=== PATIENT | male | born 1955 | race Caucasian/White ===

== ENCOUNTER 2019-06-06 23:24 | Inpatient (IN) | payer BC ==
[~2019-06-06] VITALS: Ht 188 cm; Wt 139.3 kg
[2019-06-06 23:25] VITALS: BP 147/81
--- NOTE | 2019-06-06 23:44 | NUR ---
PT PLACED ON CCM.PT GOWNED.PT PROVIDED EMESIS BAG AND TOWELS.SUCTION PROVIDED AT BEDSIDE.
--- NOTE | 2019-06-06 23:47 | NUR ---
O2 SAT DROPPED 89% RA.PT PLACED ON 2L O2 VIA NC.
[2019-06-07 00:46] LABS: BASO # 0.1 10*3/uL (0.0-0.1); BASO % 0.5 % (0.0-1.0); EOS # 0.1 10*3/uL (0.0-0.4); EOS % 0.7 % (1.0-4.0); HEMATOCRIT 45.2 % (42.0-52.0); HEMOGLOBIN 15.6 g/dl (14.0-18.0); LYMPH % 19.6 % (27.0-41.0); MEAN CELL VOLUME 85.9 fl (80.0-94.0); MEAN CORPUSCULAR HGB 29.7 pg (27.0-31.0); MEAN CORPUSCULAR HGB CONC 34.5 g/dl (33.0-37.0); MEAN PLATELET VOLUME 11.5 fl (9.6-12.3); MONO # 0.5 10*3/uL (0.1-1.0); MONO % 5.4 % (3.0-9.0); NEUT # 7.3 10*3/uL (2.3-7.9); NEUT % 73.2 % (47.0-73.0); PLATELET COUNT AUTOMATED 187 10*3/uL (130-400); RED BLOOD COUNT 5.26 10*6/uL (4.50-5.90); RED CELL DISTRI WIDTH 12.5 % (0-14.5)
[2019-06-07 00:57] LABS: ACT PARTIAL THROMBO TIME 23.1 SECONDS (20.0-32.1)
[2019-06-07 01:02] LABS: ALBUMIN 3.8 gm/dl (3.1-4.5); ALKALINE PHOSPHATASE 74 U/L (45-117); BUN 11 mg/dl (7-24); CHLORIDE 98 mmol/L (98-107); CREATININE 1.18 mg/dL (0.70-1.30); LIPASE 137 U/L (73-393); POTASSIUM 3.5 mmol/L (3.5-5.1); SGOT/AST 64 IU/L (3-35); SGPT/ALT 114 U/L (12-78); SODIUM 134 mmol/L (136-145); TOTAL PROTEIN 7.1 gm/dL (6.4-8.2)
[2019-06-07 01:03] LABS: ACETAMINOPHEN (TYLENOL) < 5.0 ug/ml (10-30); TROPONIN I < 0.015 ng/ml (<0.045)
--- NOTE | 2019-06-07 01:03 | NUR ---
LAB CALLED WITH CRITICAL LACTIC LEVEL OF 4.6. NOTIFIED.
--- NOTE | 2019-06-07 01:05 | NUR ---
PT RESTING RIGHT LATERAL POSITION IN BED WITH EYES CLOSED.
--- NOTE | 2019-06-07 01:19 | NUR ---
MAGNETIC OBSERVER CONTACTED FOR MEDICATION OF FOLIVITE.
[2019-06-07 03:00] VITALS: BP 127/72
--- NOTE | 2019-06-07 03:00 | NUR ---
A 64, admitted to 5E, under the services of PRO Gonsales DO with a diagnosis of ALCOHOL INTOXICATION. Chief complaint is ALCOHOL INTOXICATION. Patient arrived via stretcher from ER. Monitor applied. Initial assessment completed. Vital signs taken and recorded. PRO GONSALES DO notified of admission to the unit. Orders received. See assessment for past medical history, medications and allergies. Patient and/or family oriented to unit. visitation policy reviewed. Clothing/patient valuable form completed. GREG SHARP
--- NOTE | 2019-06-07 03:16 | NUR ---
LACTIC ACID OF 3.[address] KRUEGER[address]
--- NOTE | 2019-06-07 03:20 | NUR ---
PATIENT AWAKE, ALERT, ABLE TO ANSWER QUESTIONS APPROPRIATELY.
[2019-06-07] MEDS ORDERED: METFORMIN HYD1000 MG PO (03:32)
[2019-06-07] MEDS ORDERED: GLIPIZIDE5 MG PO (03:33)
[2019-06-07] MEDS ORDERED: Zestril,Prinivi40 MG PO (03:33)
[2019-06-07] MEDS ORDERED: ATORVASTATIN CA40 M1 PO (03:33)
--- NOTE | 2019-06-07 03:36 | NUR ---
MED REQ UPDATED.
[2019-06-07 05:36] LABS: ALBUMIN 3.8 gm/dl (3.1-4.5); ALKALINE PHOSPHATASE 76 U/L (45-117); BUN 13 mg/dl (7-24); CHLORIDE 102 mmol/L (98-107); CREATININE 1.34 mg/dL (0.70-1.30); PHOSPHOROUS 4.2 mg/dL (2.5-4.9); POTASSIUM 4.2 mmol/L (3.5-5.1); SGOT/AST 59 IU/L (3-35); SGPT/ALT 121 U/L (12-78); SODIUM 136 mmol/L (136-145); TOTAL PROTEIN 7.3 gm/dL (6.4-8.2)
--- NOTE | 2019-06-07 10:55 | NUR ---
LEAVING AMBULATORY IN CARE OF SELF FOR CAB IN LOBBY TO RETURN TO [facility].
== END 2019-06-07 10:55 | disposition home or self-care (01) | DRG 896 ==
LOC: ED 23:24 → EDHOLD 06-07 01:59 → 5E 06-07 01:59 → ICCU 06-07 02:17 → 5E 06-07 02:42
PROVIDERS: Emergency Medicine Emergency Medical Services; Family Medicine; ADMIT Internal Medicine
DX: F10.929 Alcohol use, unspecified with intoxication, unspecified (principal); N17.0 Acute kidney failure with tubular necrosis; E87.1 Hypo-osmolality and hyponatremia; E87.2 Acidosis; M47.9 Spondylosis, unspecified; R74.0 Nonspecific elevation of levels of transaminase and lactic acid dehydrogenase [LDH]; M25.78 Osteophyte, vertebrae; E11.65 Type 2 diabetes mellitus with hyperglycemia; I10 Essential (primary) hypertension; E78.5 Hyperlipidemia, unspecified; Z79.899 Other long term (current) drug therapy